=== PATIENT | male | born 1955 | race Caucasian/White ===

== ENCOUNTER 2019-12-27 09:29 | Emergency (ER) | payer OTHER, SELFPAY ==
[2019-12-27 09:40] VITALS: BP 135/88; PULSE 75; RESP 18; TEMP 36.7; O2SAT 98
--- NOTE | 2019-12-27 10:33 | ED.GENADULT ---
HPI - General Adult General Chief complaint: Upper Respiratory Infection Stated complaint: Sore Throat Time Seen by Provider: 12/27/19 10:33 Source: patient and RN notes reviewed Mode of arrival: ambulatory Limitations: no limitations History of Present Illness HPI narrative: 64-year-old male with complaints of upper respiratory infection symptoms, cough, and intermittent headaches (not the worst of his life) for the past 7 days. Advil, Mucinex, and Sudafed with little relief. Symptoms increased over the last 48 hours with fever and body aches. Dry cough. Rhinorrhea and nasal congestion. No exacerbating factors. High fevers, highest 102F, orally with intermittent chills. No nausea, vomiting, and abdominal pain. Denies chest pain, dyspnea, coughing up blood, difficulty swallowing, jaw pain, dental pain, facial pain, foreign body sensation, and rash. Some parts of this dictation were generated by voice recognition software and may contain typographical and/or grammatical inaccuracies. Related Data Home Medications Medication Instructions Recorded Confirmed lisinopril 12/27/19 sildenafil 12/27/19 Allergies Allergy/AdvReac Type Severity Reaction Status Date / Time No Known Allergies Allergy Unverified 05/08/19 12:42 Review of Systems Review of Systems: Narrative: CONSTITUTIONAL: Complains of fever, chills. Denies sweats. EYES: Denies visual changes, redness, discharge. ENT: Complains of rhinorrhea, congestion, facial pressure, sore throat. Denies otalgia. CARDIOVASCULAR: Denies chest pain, palpitations, edema. RESPIRATORY: Denies dyspnea, wheezing. Complains of dry cough. GASTROINTESTINAL: Denies abdominal pain, nausea, vomiting, diarrhea. GENITOURINARY: Denies dysuria, hematuria, abnormal discharge. SKIN: Denies rash or itching. MUSCULOSKELETAL: Denies acute back pain, joint pain. Complains of myalgia. NEUROLOGIC: Denies numbness or focal weakness. PSYCHIATRIC: Denies anxiety or depression. Complains of intermittent HERRERA. All systems reviewed & are unremarkable except as noted in HPI and below. [facility] Past Medical History Medical History (Updated 12/28/19 @ 00:00 by Abigail Griffin) Hypertension Surgical History Surgical History (Updated 12/27/19 @ 11:09 by JOVANNA Velasquez) No significant past surgical history Family History Family History (Updated 12/27/19 @ 11:09 by JOVANNA Velasquez) Other No significant family history Social History Social History (Updated 12/27/19 @ 11:10 by JOVANNA Velasquez) Smoking status: Never smoker Second hand tobacco smoke exposure: No Alcohol intake: current Alcohol use details: Occasional Substance use: never Living arrangements: with family Occupation/Education: occupation Gender identity (if verbalized by the patient): Male Comments At time of signature, agree with nurse past medical, surgical, social, and family history. There is no relevant family history pertinent to the presenting complaint. Exam Narrative: Exam Narrative: GENERAL: This is a well-nourished, well-developed patient, in no apparent distress. Speaks in full sentences and ambulates with steady gait without dyspnea. HEAD: normocephalic, atraumatic. EYES: PERRL. Sclera clear/white. Vision is grossly intact. EARS: External ears normal, auditory canals clear and without drainage, TMs normal without perforation. Hearing grossly intact. NOSE: External nose normal with no obvious nasal discharge, nares with moderate redness and enlarged turbinates, clear rhinorrhea. SINUSES: Mild tenderness upon palpation to frontal sinus. THROAT: Mucous membranes moist, posterior pharynx with PND, mild erythema, no exudate, and normal tonsils. No drainage, no concern for Peritonsillar abscess. No drooling, trismus, or neck swelling. NECK: Neck supple, non-tender without lymphadenopathy, masses or thyromegaly. CARDIOVASCULAR: Regular rate and rhythm without murmur
== END 2019-12-27 10:49 | disposition home or self-care (01) ==
PROVIDERS: Emergency Provider Nurse Practitioner Family; PCP Family Medicine Adolescent Medicine
DX: J11.1 Influenza due to unidentified influenza virus with other respiratory manifestations (principal); I10 Essential (primary) hypertension
CPT/HCPCS: 87804; 99213; G0463

== ENCOUNTER 2020-07-20 06:50 | Outpatient (NON) | payer OTHER, SELFPAY ==
[2020-07-20 19:25] LABS: SARS-CoV-2 RNA PCR Negative
== END 2020-07-20 06:51 ==
PROVIDERS: PCP Family Medicine Adolescent Medicine; Visit Provider Physician Assistant
DX: Z02.1 Encounter for pre-employment examination (principal); Z20.828 Contact with and (suspected) exposure to other viral communicable diseases
CPT/HCPCS: 87635; C9803; U0003

== ENCOUNTER 2022-11-21 10:02 | Outpatient (CLI) | payer OTHER, SELFPAY ==
--- NOTE | ~2022-11-21 | US_ITS ---
EXAMINATION: US aorta DATE: 11/21/2022 10:27 INDICATION: Family history of ischemic heart disease, hypertension, prior smoker TECHNIQUE: Grayscale, color Doppler, and pulsed Doppler images of the aorta and common iliac arteries were obtained. COMPARISON: 12/12/2016 FINDINGS: Maximum vascular dimensions are as follows: Proximal aorta: 2.6 cm Mid aorta: 2.2 cm Distal aorta: 2.0 cm Right common iliac artery: 1.5 cm Left common iliac artery: 1.3 cm There is no evidence of abdominal aortic aneurysm. IMPRESSION: 1. No evidence of abdominal aortic aneurysm. Reviewed, dictated and finalized at location L. [facility]
== END 2022-11-21 10:03 | disposition home or self-care (01) ==
PROVIDERS: PCP Family Medicine Adolescent Medicine; Visit Provider Physician Assistant
DX: Z82.49 Family history of ischemic heart disease and other diseases of the circulatory system (principal)
CPT/HCPCS: 76775